=== PATIENT | male | born 1995 | race Caucasian/White ===

== ENCOUNTER 2017-03-11 03:53 | Inpatient (IN) | payer OTHER ==
[~2017-03-11] VITALS: Ht 167.6 cm; Wt 92.6 kg
[2017-03-14] MEDS ORDERED: NORCO 7.5-3251 EACH PO (15:50)
[2017-03-14] MEDS ORDERED: LIBRIUM-DPS25 MG PO (15:50)
--- NOTE | 2017-03-17 07:41 | ER ---
ADMIT: 03/11/2017 RM/LOC: ER [facility] MR#: [id number] [address] [address] MAHAD [place] [address] [place] [address] Emergency Room Report SEX: M AGE: 21 : 1995 DATE: 03/11/2017 TIME: 03:53. Please refer to my T-sheet for complete H and P. HISTORY OF PRESENT ILLNESS: Briefly, the patient is a 20-year-old playing with skateboard and he fell. He does know exactly how he fell, but his leg went the opposite direction. He said he is having severe mid thigh pain. No other injury. No other complaints. It happened just prior. PHYSICAL EXAMINATION: VITAL SIGNS: Stable. HEENT: Grossly normal. NECK: Soft, supple. No pain to palpation. LUNGS: Clear. HEART: Regular. ABDOMEN: Soft. EXTREMITIES: His left thigh is swollen. He is neurovascularly intact distally. EMERGENCY DEPARTMENT COURSE: X-ray of his left femur revealed a proximal femur fracture. The patient refused other x-ray as he only allowed one film. We titrated Dilaudid. He had received a total of 3 IV. His CBC and basic were ordered are pending and an EKG. Talked to Justo, who will admit to the hospital. ASSESSMENT: 1. Left femur fracture as described. 2. Fall. PLAN: Admit to the hospital. Jose Luong MD/ janay JOB #: [id number] CC:
--- NOTE | 2017-03-20 07:49 | OR ---
ADMIT: 03/11/2017 RM/LOC: 520 [facility] MR#: [id number] [address] [address] [place] [address] Operative/Delivery Room Report SEX: M AGE: 21 : 1995 SURGERY DATE: 03/11/2017 SURGEON: Tanvir Kemp MD INSTALLATION SPECIALIST: Jarett Prasad PA-C PREOPERATIVE DIAGNOSIS: Left subtrochanteric femur fracture. POSTOPERATIVE DIAGNOSIS: Left subtrochanteric femur fracture. PROCEDURE PERFORMED: Left trochanteric fixation nailing of the femur. COMPLICATIONS: None. BLOOD LOSS: 50 mL. IMPLANTS: Synthes TFN with a 95 screw and 1 distal interlock screw, size 11 nail. INDICATIONS: Sherman is a 21-year-old male, last night he was drunk and did something that involved a skateboard that resulted with him having a subtroch femur fracture. He came to the ER. Otherwise, workup was negative for any other injuries, just an isolated femur fracture. We discussed with him and with his parents, his mom and his grandpa, about the options and everyone agreed to go ahead with surgery for a TFN, and he is brought here for that now. DESCRIPTION OF PROCEDURE: The patient was identified in the preoperative holding area. Written informed consent was confirmed, site was marked. Brought to the OR, placed supine. General anesthesia was induced. He was put on the fracture table, left leg in a traction boot, right in the semi- lithotomy position. We then performed a reduction maneuver after a time-out was performed. Preoperative antibiotics were confirmed. I abducted, externally rotated the leg. It flexed it to about 15 degrees and then put traction on and then adducted the leg, internally rotated it through a more neutral position. Took off some of the traction. Had x-rays, this had it really well lined up. I kind of fine tuned the rotation until the cortical line sort of lined up, and then after preoperative draping in the usual sterile fashion, made an incision about 2 cm in length proximal to the trochanter in line with the femur, put the guide pin down at the tip of the troch, put that down. Used the opening reamer proximally and then put a guide pin across the fracture site with it being reduced and then with the fracture ADMIT: 03/11/2017 RM/LOC: 520 [facility] MR#: [id number] [address] [address] SHERMAN ESTR[place] [facility] [place] [address] Operative/Delivery Room Report SEX: M AGE: 21 : 1995 being reduced, was able to ream sequentially up to 12-2 and then put in an 11 nail and then passed the guide pin using the alignment guide to put a pin in. It measured for a 95 screw. We drilled for that and then placed a screw, and then using perfect surgical technique down by the knee, I placed 1 interlock screw in the static position there and then the proximal screw was statically locked down as well. I got final x-rays confirming good alignment with adequate fixation with the nail, and I was happy with that. We irrigated, closed with 0 Vicryl for the fascial layer, 2-0 for the subcu layer, and then gisselle for the skin. He was then extubated, brought to the postop care unit in good condition. No complications. Postoperatively, we will keep him toe-touch weightbearing, give him aspirin for DVT prophylaxis, and he will be here for pain control for probably likely 1-2 more days. Tanvir Kemp MD/ ty JOB #: [id number] CC: Tanvir Kemp, Attending Physician Tanvir Kemp, Family Physician
--- NOTE | 2017-03-20 07:49 | HP ---
ADMIT: 03/11/2017 RM/LOC: 520 [facility] MR#: [id number] [address] [address] MAHAD ESTRADA [place] [address] Pre-OP History and Physical SEX: M AGE: 21 : 1995 Corrected: 02/08/2017 1130 goldy DATE OF SERVICE: 03/11/2017 CHIEF COMPLAINT: Left femur fracture. HISTORY OF PRESENT ILLNESS: This is a 21-year-old male, who presented to the Emergency Department overnight after sustaining an injury to his left femur. He reported to them that he was doing a skateboard trick and landed awkwardly. After further discussion with he and his mother, who is with him, he had been drinking since about 8:00 p.m. until about the time of the incident. They were playing football when he landed awkwardly and twisted his leg. He is not entirely sure how much he had to drink, but he had at least a 12-pack of Felipe Blue Ribbon. Per his grandfather, he has an extensive drinking problem and drinks heavily on a regular basis to the point of intoxication. He denies any prior history of injury to the femur. No other injuries sustained in this injury. He is admitted for definitive orthopedic care. ALLERGIES: MORPHINE, RASH. MEDICATIONS: None. PAST MEDICAL HISTORY: Exercise-induced asthma. Apparently, he has some sort of history of being more susceptible to common childhood illnesses per his mother, but other than that, no chronic medical problems. Per his grandfather, he does report heavy alcohol use. SOCIAL HISTORY: He drinks regularly. Beer is his drink of choice. Again, generally heavy drinking. Also, smokes 1.5 to 2 packs per day. He also reports to being on probation. He was recently laid off of his job but was to start a new one at [employer] next week. Lives in [place] with a friend. FAMILY HISTORY: Significant for hypertension, diabetes, heart disease, and multiple cancers including prostate, breast, and cervical. REVIEW OF SYSTEMS: Negative other than those reported in the HPI. PHYSICAL EXAMINATION: GENERAL: This is an otherwise, healthy-appearing, 21- year-old male, who is lying in a hospital bed in room 520. He is in mild-to- moderate distress due to his leg injury. He has been given Dilaudid a couple of hours ago. He answers all questions appropriately. He is interactive. He is obviously anxious about the situation, trying to make some jokes, and he is obviously, again, anxious. EXTREMITIES: Exam of the left lower extremity shows that his skin is intact without acute abnormal findings. He has diffuse moderate swelling about the thigh with a lot of tenderness to palpation anywhere. He really is quite apprehensive about any touch to the leg. Compartments are soft. He sits with the hip flexed is the only comfortable position, and any motion is exquisitely painful for him. Distally he is neurovascularly intact with good, strong dorsalis pedis and posterior tibialis pulses. He can move his toes on command, distinguish light touch. ADMIT: 03/11/2017 RM/LOC: 520 [facility] MR#: [id number] [address] [place] [phone] [place] [address] Pre-OP History and Physical SEX: M AGE: 21 : 1995 IMAGING: I reviewed previously obtained x-rays from the Emergency Department. One view of the femur shows the subtroch area proximal femur fracture with a large medial butterfly fragment with apex lateral angulation and shortening. ASSESSMENT: 1. Left proximal femur fracture. 2. Nicotine dependence. 3. Alcoholism. PLAN: I had a long discussion with the patient, his mother, and his grandfather. Mother's name is Melinda, grandfather's name is Magnus, about treatment options, in his case long TFN with Dr. Kemp today. Discussed the risks, benefits, and alternatives with risks to include, but not be limited to, infection, neurovascular injury, poor result despite our best efforts as well as a period of recovery as well as the risks associated with anesthesia. He understands these. He is anxious about them, but does elect to proceed with surgical correction. We will try do that later this morning with Dr. Kemp. Given his alcoholism, we are going to have Cylinder Batcher consult for alcohol evaluation and possible treatment. We are also going to have him start a nicotine patch due to his heavy smoking history. I have encouraged him to quit as that does universally affect healing and outcomes. Apparently, he is also on probation. 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 Apparently, he has history of exercise-induced asthma as well as a smoking history. We will further discuss that with Anesthesia. It has been about 6 hours at least at this time since he has had anything to eat or drink, so he should be cleared for surgery from that aspect. Plan is to proceed later today with trochanteric femoral nailing. Jarett Prasad PA-C / Tanvir Kemp MD / janay JOB #: [id number] CC: Tanvir Kemp, Attending Physician Tanvir Kemp, Family Physician Corrected: 02/08/2017 1130 goldy
--- NOTE | 2017-03-21 08:39 | DS ---
ADMIT: 03/11/2017 RM/LOC: 520 [facility] MR#: [id number] [address] [address] [place] [address] Discharge Summary SEX: M AGE: 21 : 1995 ADMISSION DATE: 03/11/2017 DISCHARGE DATE: 03/13/2017 DIAGNOSIS: Left femur fracture. PROCEDURE PERFORMED DURING ADMISSION: Left femoral nailing. COMPLICATIONS: None. CONDITION ON DISCHARGE: Good. DISPOSITION: Home. HOSPITAL COURSE: Sherman is unfortunate young man, who is suffering with a lot of issues in his life concerning for alcoholism and substance abuse and poor behavioral choices, who suffered a femur fracture. He was admitted and no [id number] problems of anything, took him for femoral nailing. He is on alcohol withdrawal protocol and such, but did just fine throughout his hospital course. There were no complications during the surgery. For full details regarding the procedure, please see dictated operative report. Postoperatively, he did well with pain and getting up with therapy, and so he was discharged home to follow up in 10 to 14 days. He was discharged with sort of his home medicines being reconciled with the addition of Jayess 7.5 mg, and he was further instructed to take aspirin 325 mg b.i.d. Tanvir Kemp MD/ janay JOB #: [id number] CC: Tanvir Kemp MD, Attending Physician Tanvir Kemp MD, Family Physician
--- NOTE | 2017-03-22 08:10 | CO ---
ADMIT: 03/11/2017 RM/LOC: 520 [facility] MR#: [id number] [address] [address] [place] [address] Consultation SEX: M AGE: 21 : 1995 DATE OF CONSULTATION: 03/12/2017 ATTENDING PHYSICIAN: Tanvir Kemp CONSULTING PHYSICIAN: Donavan Garcia MD REASON FOR CONSULTATION: Discuss alcohol rehabilitation with the patient and other medical management. HISTORY OF PRESENT ILLNESS: Sherman is a 21-year-old male, presented to the Emergency Department on the night of 03/10/2017 after sustaining an injury to his left femur. Apparently, he was riding on a skateboard, fell, hurt his leg. Alcohol was involved. It was noted in previous records and by the patient himself that he drinks on a regular basis. The patient states that actually over the last 2 weeks, he has cut back significantly. His drink of choice is beer. He states that over the last 2 weeks, last night was the most intoxicated that he has been. He states he drank about 12 packs of Felipe Blue Ribbon last night. He does note that this is not the first time alcohol has gotten him in trouble. He is actually going to be on probation secondary to theft of alcohol products. The patient does believe that he has had problems with alcohol as far as abuse, but he does not believe he is dependent. He states that he feels like he has control over alcohol, although admits that he uses it on a regular basis. He does not feel like he needs any inpatient or outpatient treatment for this. He is quite annoyed actually that I am talking to them about this subject at all and asks me immediately if "did my mom make you do this." He otherwise is very pleasant. Denies any pain. He denies any history of withdrawal in the past. He denies any sweating, chest pain, hallucinations, fevers, chills, or any other significant symptoms at this time. He is hoping to get out of the hospital either later today or tomorrow. Again, he is quite adamant that he does not need treatment, is not even willing to discuss this. ALLERGIES: MORPHINE CAUSES A RASH. MEDICATIONS: Please refer to hospital record. PAST MEDICAL HISTORY: Exercise-induced asthma. Alcohol abuse. SOCIAL HISTORY: The patient drinks regularly. Beer drug of choice. He drinks on most days but has been cutting back over the last 2 weeks. He has had abuse problems and is currently looking at probation secondary to theft of alcohol. This injury was likely alcohol-related. The patient also smokes 1-1/2 to 2 packs a day. He does want to quit but is not interested in any medicines for this. The patient was brought to start advocating foods next week, with this injury obviously says he will not be able to do that. He lives in [place] with a friend. No other drug use. FAMILY HISTORY: Noncontributory. Hypertension, diabetes, heart disease. ADMIT: 03/11/2017 RM/LOC: 520 [facility] MR#: [id number] [address] [place] [id number] [place] [address] Consultation SEX: M AGE: 21 : 1995 REVIEW OF SYSTEMS: 10-point review of systems obtained, per HPI, otherwise negative. PHYSICAL EXAMINATION: VITAL SIGNS: Blood pressure 115/50, pulse 94, respirations 20, temperature 99.2. He is 99% on room air. GENERAL: The patient is alert and oriented x3. Does not appear to be in acute distress. Does not appear agitated, very friendly and polite but does get a little annoyed about discussing any type of rehabilitation for his alcohol use. HEENT: Pupils equal, round, and reactive. Extraocular muscles intact. Throat clear. Trachea midline. HEART: Regular rate and rhythm. No murmurs, rubs, or gallops. LUNGS: Clear to auscultation bilaterally without any wheezes or crackles. ABDOMEN: Soft. Nondistended. No organomegaly. EXTREMITIES: Left lower extremity with dressings on. NEUROLOGICAL: Intact. No focal deficits. No asterixis. No signs of withdrawal. LABORATORY DATA: Hemoglobin is 10.7. ASSESSMENT: This is a 21-year-old male with: 1. Postop day #1 left trochanteric fixation nailing of the left femur for fracture. 2. Alcohol abuse, possible dependence with no current signs of history of withdrawal. 3. Nicotine dependence. 4. Postop anemia, mild, expected. PLAN: Discussed extensively with the patient regarding his current health and his use of alcohol. The patient does have good insight and admits that alcohol has been involved with some of the more recent problems in his life, and admits to abuse, but denies at all any kind of dependence. He feels like he can manage this himself and feels that he is already cutting back. We discussed at length that getting some outside help, possibly even inside inpatient treatment, would be beneficial to him given how alcohol has negatively affected his life recently. We discussed that with his leg fracture, now might be a good time to do this. He adamantly denies any need for this and does not want to discuss it any further. The patient is interested in quitting smoking but does not want to do that at this time either. ADMIT: 03/11/2017 RM/LOC: 520 [facility] MR#: [id number] 2620 [facility] [address] [place] [phone] [place] [address] Consultation SEX: M AGE: 21 : 1995 I agree with aspirin for his DVT prophylaxis. We will continue to monitor for withdrawal, but at this point, I do not see any need to be on prophylactic benzodiazepines. The patient is medically stable. Can likely go home either today or tomorrow per Surgery's recommendations. Thank you for allowing me to take part in the care of Sherman. Unfortunately, he is not at a point where he is even willing to talk further about any type of treatment. We will continue to follow along for any other medical needs. Donavan Garcia MD/ janay JOB #: [id number] CC: Tanvir Kemp, Attending Physician Tanvir Kemp, Family Physician
== END 2017-03-13 16:36 | disposition home or self-care (01) | DRG 481 ==
LOC: ER 03:53 → 5MS 04:40
PROVIDERS: ADMIT Student in an Organized Health Care Education/Training Program
PROC: 0QS734Z Reposition Left Upper Femur with Internal Fixation Device, Percutaneous Approach (ICD-10-PCS; principal; 2017-03-11)
DX: S72.22XA Displaced subtrochanteric fracture of left femur, initial encounter for closed fracture (principal); D62 Acute posthemorrhagic anemia; V00.131A Fall from skateboard, initial encounter; F17.210 Nicotine dependence, cigarettes, uncomplicated; F10.10 Alcohol abuse, uncomplicated